=== PATIENT | male | born 1955 | race Caucasian/White ===

== ENCOUNTER 2018-03-16 15:05 | Emergency (ER) | payer BC ==
[~2018-03-16] VITALS: Ht 180.3 cm; Wt 108.9 kg
[~2018-03-16 15:05] MED LIST: ASPIRIN325 MG PO; EXCEDRIN MIGRA1 EAC3; FAMOTIDINE20 MG PO; GABAPENTIN300 MG PO; METOPROLOL TART25 MG PO; MIRAPEX0.125 MG PO; PLAVIX75 MG PO; SIMVASTATIN20 MG PO; ZESTRIL2.5 MG PO; ZOLPIDEM TARTRAT5 MG PO
[2018-03-16] MEDS ORDERED: ONDANSETRON HCL 4 MG ORAL DISINTEGRATING TAB PO ONE (19:00)
[2018-03-16] MEDS ORDERED: HYDROMORPHONE 2MG/ML 2 MG/ML ML IM ONE (19:00)
== END 2018-03-16 20:30 | disposition home or self-care (01) ==
LOC: ER 15:05
DX: M54.5 Low back pain (principal); S39.012A Strain of muscle, fascia and tendon of lower back, initial encounter; I10 Essential (primary) hypertension
CPT/HCPCS: 99284; J1170

== ENCOUNTER → 2019-01-22 | Outpatient (CLI) | payer BC ==
[~2019-01-22] MED LIST changes: +ALBUTEROL0.63 MG/3 INH; +ASPIRIN81 MG PO; +BENICAR HCT 401 EACH PO; +BENZONATATE100 MG PO; +CELEBREX100 MG PO; +CRESTOR20 MG PO; +FUROSEMIDE40 MG PO; +LEVAQUIN500 MG PO; +METHOCARBAMOL500 MG PO; +METOPROLOL SUCC50 MG PO; +NICOTINE PATCH1 EAC5 TD; +POTASSIUM CHLO10 ME1 PO; +PREDNISONE20 MG PO; +REQUIP0.5 MG PO; +ROBITUSSIN LON118 ML PO; +TRAZODONE HCL50 MG PO; +VITAMIN D3
--- NOTE | 2019-01-22 07:18 | Diagnostic Imaging Report ---
Exam: Right knee 2 views History: Knee pain after fall 2 months ago Comparison: None. Findings: No acute, displaced fracture or dislocation. Minimal tricompartmental joint space narrowing with faint calcifications in the medial and lateral menisci. No definite joint effusion. Soft tissues are unremarkable. Faint atherosclerotic calcifications of the distal superficial femoral artery. Impression: No acute osseous abnormality. Minimal tricompartmental degenerative arthrosis with meniscal calcifications. Consider CPPD arthropathy. Signed by: Dr. Edvin Long M.D. on 01/22/2019 7:15 AM
== END ==
LOC: RAD 06:28
PROVIDERS: ATTEND Internal Medicine
DX: M17.11 Unilateral primary osteoarthritis, right knee (principal)

== ENCOUNTER → 2019-04-04 | Outpatient (CLI) | payer BC ==
--- NOTE | 2019-04-04 11:57 | Diagnostic Imaging Report ---
TECHNIQUE: Magnetic resonance imaging of the RIGHT KNEE was performed WITHOUT injected contrast. HISTORY: UNSPC'D INTERNAL DERANGEMENT, fell, pain, swelling COMPARISON: Right knee radiographs January 22, 2019. FINDINGS: Motion artifact partially limits sensitivity and specificity of the exam. LIGAMENTS AND TENDONS: ACL: Intact PCL: Intact Collateral ligaments: Intact Iliotibial band: Unremarkable Popliteal tendon: Intact Extensor mechanism: Intact JOINT: Menisci: Medial: Complex tearing, centered at the posterior horn, extending from the posterior root attachment to the periphery of the adjacent body. Lateral: Intact Articular Cartilage: Medial Compartment: Erosion and fibrillation of the weightbearing cartilage, most notably high-grade at the central posterior weightbearing cartilage of the medial femoral condyle. Lateral Compartment: Superficial erosions of the weightbearing cartilage. Patellofemoral Compartment: Diffuse intermediate grade erosion of the patellar cartilage with high-grade to full-thickness fissuring. Joint Fluid: The amount of fluid within the joint is within physiologic limits. BONES: No focal or infiltrative bone marrow replacing abnormality. No acute fracture. Subtle focus of subchondral bone marrow edema at the medial patellar facet. SOFT TISSUES: A multilobulated subcentimeter para meniscal cyst adjacent to the posterior root attachment of the medial meniscus. Mild diffuse nonspecific soft tissue edema. IMPRESSION: Tricompartmental degenerative changes including degenerative tearing of the medial meniscus, acute on chronic tearing is possible given the provided history. Signed by: Dr. Khadar Hernandez D.O., M.M.M. on 04/04/2019 11:54 AM
== END ==
LOC: MRI 07:02
PROVIDERS: ATTEND Specialist
DX: M23.91 Unspecified internal derangement of right knee (principal)

== ENCOUNTER → 2019-04-15 | Day surgery (SDC) | payer BC ==
[2019-04-11 11:32] LABS: BASOPHILS % 0.2 % (0.0-1.0); EOSINOPHILS % 0.2 % (0.0-6.0); HEMATOCRIT 41.8 % (38.2-49.6); HEMOGLOBIN 14.3 g/dL (14.0-18.0); LYMPHOCYTES # (AUTO) 1.3 (1.0-3.2); LYMPHOCYTES % 7.8 % (18.0-39.1); MEAN CORPUSCULAR HEMOGLOBIN 33.7 pg (28-32); MEAN CORPUSCULAR HGB CONC 34.2 g/dL (31-35); MEAN CORPUSCULAR VOLUME 98.6 fL (81-99); MONOCYTES # (AUTO) 1.3 (0.2-0.8); MONOCYTES % 7.9 % (4.4-11.3); NEUTROPHILS # (AUTO) 14.2 (2.1-6.9); NEUTROPHILS % 83.1 % (38.7-80.0); PLATELET COUNT 270 x10e3/uL (140-360); RED BLOOD COUNT 4.24 x10e6/uL (4.3-5.7); RED CELL DISTRIBUTION WIDTH 14.1 % (11.7-14.4)
[~2019-04-15] MED LIST changes: +ACETAMINOPHEN 1000 MG/100 ML IV ONE; +APPLE CIDER VI300 MG; +BUTALB-ACETAMI1 EACH; +CEFAZOLIN SOD 1 GM/NS 50ML 50 ML IV ONE; +CORICIDIN HBP1 EACH; +DEXAMETHASONE SOD PHOS INJ 4 MG/ML VIAL ONE; +FENTANYL CITRATE/PF 100MCG/2 ML INJ ONE; +KETOROLAC TROMETHAMINE 30 MG/ML VIAL ONE; +LIDOCAINE HCL 2% LOCAL INJ 5 ML SDV VIAL INJ ONE; +MIDAZOLAM HCL 2 MG/2 ML VIAL ONE; +ONDANSETRON HCL INJ 2MG/ML 2ML 2 MG/ML VIAL ONE; +PROPOFOL IV EMULSION 10 MG/ML 20 ML VIAL ONE; +SEVOFLURANE INHAL SOLN 250 ML PEN BTL ONE; +TYLENOL ARTHRITIS
--- NOTE | 2019-04-15 07:05 | NUR ---
SPIRITUAL CARE - Pre-Surgery Assessment: Pt in bed. Pt's daughter at bedside. Pt reported supportive attention from family and friends. Intervention: I provided pastoral presence, hospitality, and sympathetic listening. I acquainted pt with availability of fitter type bar and segment while hospitalized. Outcome: Pt expressed appreciation for visit. No need for follow up indicated at this time. MARIKA [facility]ennal[facility] Spiritual Care Department O: [phone] Pager: [phone] ([phone] calling from)
[2019-04-15 07:11] LABS: BASOPHILS # (AUTO) 0.1 (0.0-0.1); BASOPHILS % 0.4 % (0.0-1.0); EOSINOPHILS # (AUTO) 0.2 (0.0-0.4); EOSINOPHILS % 1.2 % (0.0-6.0); HEMATOCRIT 38.6 % (38.2-49.6); HEMOGLOBIN 13.2 g/dL (14.0-18.0); LYMPHOCYTES # (AUTO) 2.2 (1.0-3.2); LYMPHOCYTES % 17.1 % (18.0-39.1); MEAN CORPUSCULAR HEMOGLOBIN 33.8 pg (28-32); MEAN CORPUSCULAR HGB CONC 34.2 g/dL (31-35); MEAN CORPUSCULAR VOLUME 98.7 fL (81-99); MONOCYTES # (AUTO) 1.2 (0.2-0.8); MONOCYTES % 9.6 % (4.4-11.3); NEUTROPHILS # (AUTO) 9.1 (2.1-6.9); NEUTROPHILS % 70.2 % (38.7-80.0); PLATELET COUNT 260 x10e3/uL (140-360); RED BLOOD COUNT 3.91 x10e6/uL (4.3-5.7); RED CELL DISTRIBUTION WIDTH 14.7 % (11.7-14.4)
[2019-04-15 10:20] VITALS: BP 122/63
--- NOTE | 2019-04-15 14:37 | Operative Report ---
DATE OF PROCEDURE: 04/15/2019 SURGEON: Edvin Brooks MD PRACTICING DERMATOLOGIST: Dae Richardson, certified PA. PREOPERATIVE DIAGNOSIS: Right knee medial meniscal tear. POSTOPERATIVE DIAGNOSES: 1. Right knee medial meniscal tear. 2. Grade 3 chondromalacia of the medial femoral condyle. PROCEDURES: Right knee arthroscopy, partial medial meniscectomy, and chondroplasty of the medial femoral condyle. INDICATIONS: The patient is a 63-year-old gentleman, who has clinic signs and symptoms consistent with a complex tear of the medial meniscus in his right knee. He has failed conservative management and would like to proceed with more aggressive intervention. The risks and benefits of arthroscopy have been discussed. The likelihood of arthritic changes in the knee has been explained. The likelihood of some persistent aching arthritic pain after the surgery has been explained. He states he understands and wishes to proceed. PROCEDURE IN DETAIL: The patient was brought to the operating room and placed under general anesthetic. His right lower extremity was prepped and draped in a sterile manner. A preoperative time-out was performed. A tourniquet placed in the upper thigh had been inflated to 300 mmHg. Standard arthroscopy portals were established. The knee was insufflated with sterile saline and systematically inspected. The suprapatellar pouch demonstrated some synovitis. There was a large medial parapatellar plica. The medial compartment was inspected. A large portion of the weightbearing surfaces of the medial femoral condyle demonstrated grade 3 chondromalacia. There were unstable peripheral margins of the area of wear. There was a complex tear of the posterior horn of the medial meniscus. A combination of biting forceps and a mechanical shaver were used to debride the meniscus back to a stable margin. A gentle chondroplasty was performed to the unstable fragments of cartilage along the medial femoral condyle. The medial plica was removed. The cruciate ligaments and lateral compartment were unremarkable. There was mild chondrocalcinosis in the lateral meniscus, but there was no evidence of an unstable tear. The knee was thoroughly irrigated. The arthroscopic instruments were removed. The portal incisions were closed with nylon stitches. A sterile bandage was applied. There was no blood loss and all needle and sponge counts were correct. Edvin Brooks MD DR/OUSMANE /[id number]
== END | disposition home or self-care (01) ==
LOC: OR 05:40
PROVIDERS: ATTEND Specialist
DX: S83.231A Complex tear of medial meniscus, current injury, right knee, initial encounter (principal); M94.261 Chondromalacia, right knee; M67.51 Plica syndrome, right knee; M11.261 Other chondrocalcinosis, right knee; I25.2 Old myocardial infarction; E78.5 Hyperlipidemia, unspecified; I10 Essential (primary) hypertension; K44.9 Diaphragmatic hernia without obstruction or gangrene; K21.9 Gastro-esophageal reflux disease without esophagitis; F17.210 Nicotine dependence, cigarettes, uncomplicated; X58.XXXA Exposure to other specified factors, initial encounter; Y93.39 Activity, other involving climbing, rappelling and jumping off; Y92.814 Boat as the place of occurrence of the external cause; Z01.812 Encounter for preprocedural laboratory examination; Z79.02 Long term (current) use of antithrombotics/antiplatelets; Z79.82 Long term (current) use of aspirin; Z68.34 Body mass index [BMI] 34.0-34.9, adult
CPT/HCPCS: 29881; 36415 ×2; 85025 ×2; J0131; J0690; J1100; J1885; J2001; J2250; J2405; J2704; J3010

== ENCOUNTER 2019-04-19 22:45 | Emergency (ER) | payer BC ==
[~2019-04-19] VITALS: Ht 180.3 cm; Wt 110.7 kg
[~2019-04-19 22:45] MED LIST changes: -ACETAMINOPHEN 1000 MG/100 ML IV ONE; -CEFAZOLIN SOD 1 GM/NS 50ML 50 ML IV ONE; -DEXAMETHASONE SOD PHOS INJ 4 MG/ML VIAL ONE; -FENTANYL CITRATE/PF 100MCG/2 ML INJ ONE; -KETOROLAC TROMETHAMINE 30 MG/ML VIAL ONE; -LIDOCAINE HCL 2% LOCAL INJ 5 ML SDV VIAL INJ ONE; -MIDAZOLAM HCL 2 MG/2 ML VIAL ONE; -ONDANSETRON HCL INJ 2MG/ML 2ML 2 MG/ML VIAL ONE; -PROPOFOL IV EMULSION 10 MG/ML 20 ML VIAL ONE; -SEVOFLURANE INHAL SOLN 250 ML PEN BTL ONE
--- NOTE | 2019-04-19 23:40 | NUR ---
pt manually disimpacted per md orders. large amount of hard stool manually removed. pt tolerated c minimal discomfort. pt up to bathroom p disimpaction and able to have large soft bm at this time. md informed.
== END 2019-04-19 23:57 | disposition home or self-care (01) ==
LOC: ER 22:45
DX: K59.00 Constipation, unspecified (principal); I10 Essential (primary) hypertension; E78.5 Hyperlipidemia, unspecified; K21.9 Gastro-esophageal reflux disease without esophagitis; Z95.5 Presence of coronary angioplasty implant and graft
CPT/HCPCS: 99283

== ENCOUNTER → 2020-12-09 | Outpatient (CLI) | payer MEDICARE, OTHER ==
[~2020-12-09] MED LIST changes: +IOPAMIDOL 370 MG/ML 200 ML INFUS..BTL INJ ONE; +SODIUM CHLORIDE 0.9% 50ML 50 ML ONE
[2020-12-09 14:22] LABS: BLOOD UREA NITROGEN 17 mg/dL (7-26); BUN/CREATININE RATIO 15 (6-25); EST GLOMERULAR FILTRATION RATE > 60 ML/MIN (60-)
== END ==
LOC: CT 13:11
PROVIDERS: ATTEND Internal Medicine Interventional Cardiology
DX: R07.9 Chest pain, unspecified (principal); R51.9 Headache, unspecified
CPT/HCPCS: 36415; 71260; 82565; 84520; Q9967

== ENCOUNTER → 2020-12-09 | Outpatient (CLI) | payer OTHER ==
[~2020-12-09] MED LIST changes: -IOPAMIDOL 370 MG/ML 200 ML INFUS..BTL INJ ONE; -SODIUM CHLORIDE 0.9% 50ML 50 ML ONE
== END ==
LOC: CT 13:31
PROVIDERS: ATTEND Internal Medicine
DX: R51.9 Headache, unspecified (principal)
CPT/HCPCS: 70450

== ENCOUNTER → 2021-03-11 | Outpatient (CLI) | payer MEDICARE ==
[~2021-03-11] MED LIST changes: +IOPAMIDOL 200 MG/ML 20 ML VIAL IT ONE; +IOPAMIDOL 300 MG/ML 15ML VIAL IT ONE; +LIDOCAINE HCL 1% LOCAL INJ 20 ML VIAL ONE
[2021-03-11 10:16] LABS: HEMOGLOBIN 16.5 g/dL (14.0-18.0)
[2021-03-11 10:40] LABS: INR 0.96
[2021-03-11 10:44] LABS: PARTIAL THROMBOPLASTIN TIME 28.6 seconds (23.8-35.5)
== END ==
LOC: DX 09:53
PROVIDERS: ATTEND Internal Medicine
DX: M54.12 Radiculopathy, cervical region (principal); M50.80 Other cervical disc disorders, unspecified cervical region
CPT/HCPCS: 36415; 62302; 72126; 85014; 85049; 85610; 85730; J2001; Q9967 ×2

== ENCOUNTER → 2021-06-15 | Outpatient (CLI) | payer MEDICARE ==
[~2021-06-15] MED LIST changes: -IOPAMIDOL 200 MG/ML 20 ML VIAL IT ONE; -IOPAMIDOL 300 MG/ML 15ML VIAL IT ONE; -LIDOCAINE HCL 1% LOCAL INJ 20 ML VIAL ONE
== END ==
LOC: MRI 08:33
PROVIDERS: ATTEND Neurological Surgery
DX: M54.12 Radiculopathy, cervical region (principal); M54.6 Pain in thoracic spine
CPT/HCPCS: 72070; 72141

== ENCOUNTER 2021-07-01 10:55 | Outpatient (RCR) | payer MEDICARE | END 2021-07-16 | LOC: PT 10:55 | PROVIDERS: ATTEND Neurological Surgery | DX: M54.12 Radiculopathy, cervical region (principal) ==

== ENCOUNTER 2024-05-02 05:52 | Emergency (ER) | payer OTHER ==
[~2024-05-02] VITALS: Ht 180.3 cm; Wt 101.2 kg
[~2024-05-02 05:52] MED LIST changes: +OLMESARTAN-HCT1 EAC1
[2024-05-02 06:05] VITALS: PULSE 95; RESP 17; TEMP 98.8; O2SAT 98
== END 2024-05-02 06:57 | disposition home or self-care (01) ==
LOC: ER 06:07 → MERGE 06:07 → ER 06:57
DX: R33.9 Retention of urine, unspecified (principal); I10 Essential (primary) hypertension; E78.5 Hyperlipidemia, unspecified; I25.10 Atherosclerotic heart disease of native coronary artery without angina pectoris; M54.9 Dorsalgia, unspecified; G89.29 Other chronic pain; F17.210 Nicotine dependence, cigarettes, uncomplicated
CPT/HCPCS: 51700; 99282

== ENCOUNTER 2024-10-26 08:53 | Emergency (ER) | payer SELFPAY ==
[~2024-10-26] VITALS: Ht 182.9 cm; Wt 115.7 kg
[~2024-10-26 08:53] MED LIST changes: -ALBUTEROL SULF 0.083% NEB SOLN 3 ML NEB ONE; -DOXYCYCLINE HY100 MG PO
[2024-10-26 09:56] LABS: BASOPHILS % 0.3 % (0.0-1.0); EOSINOPHILS # (AUTO) 0.2 (0.0-0.4); EOSINOPHILS % 3.3 % (0.0-6.0); HEMATOCRIT 42.4 % (38.2-49.6); HEMOGLOBIN 13.9 g/dL (14.0-18.0); LYMPHOCYTES % 15.6 % (18.0-39.1); MEAN CORPUSCULAR HEMOGLOBIN 28.5 pg (28-32); MEAN CORPUSCULAR HGB CONC 32.8 g/dL (31-35); MEAN CORPUSCULAR VOLUME 87.1 fL (81-99); MONOCYTES # (AUTO) 0.6 (0.2-0.8); MONOCYTES % 9.4 % (4.4-11.3); NEUTROPHILS # (AUTO) 4.7 (2.1-6.9); NEUTROPHILS % 70.7 % (38.7-80.0); PLATELET COUNT 203 x10e3/uL (140-360); RED BLOOD COUNT 4.87 x10e6/uL (4.3-5.7); RED CELL DISTRIBUTION WIDTH 17.4 % (11.7-14.4); WHITE BLOOD COUNT 6.68 x10e3/uL (4.8-10.8)
[2024-10-26] MEDS: SODIUM CHLORIDE 0.9% 1000ML 2,330 ML IV SCH (09:58)
[2024-10-26] MEDS: DEXAMETHASONE SOD PHOS 10 MG/1 ML VIAL IV ONE (09:59)
[2024-10-26] MEDS: KETOROLAC TROMETHAMINE 30 MG/ML VIAL IV STA (10:09)
[2024-10-26 10:10] VITALS: PULSE 93; RESP 18; O2SAT 93
[2024-10-26 10:11] VITALS: PULSE 93; RESP 18
[2024-10-26 10:11] LABS: ALBUMIN 3.6 g/dL (3.5-5.0); ALBUMIN/GLOBULIN RATIO 1.1 (0.8-2.0); BILIRUBIN,TOTAL 0.8 mg/dL (0.2-1.2); CALCIUM 9.1 mg/dL (8.4-10.2); CREATININE, SERUM 1.25 mg/dL (0.72-1.25); INR 1.05; PROTHROMBIN TIME 14.3 seconds (11.9-14.5)
[2024-10-26] MEDS: ALBUTEROL/IPRATROPIUM 3 ML NEB NEB ONE (10:11)
[2024-10-26 10:16] LABS: CORONAVIRUS COVID-19 AG NEGATIVE (NEGATIVE); INFLUENZA A AG NEGATIVE (NEGATIVE); INFLUENZA B AG NEGATIVE (NEGATIVE)
[2024-10-26 11:53] LABS: CLARITY,URINE CLEAR (CLEAR); COLOR,URINE YELLOW (YELLOW)
[2024-10-26 11:54] LABS: BILIRUBIN,URINE NEGATIVE (NEGATIVE); GLUCOSE, URINE NEGATIVE (NEGATIVE); KETONES,URINE NEGATIVE (NEGATIVE); LEUKOCYTE ESTERASE ,URINE NEGATIVE (NEGATIVE); NITRITE,URINE NEGATIVE (NEGATIVE); PH,URINE 6.5 (5 - 7); PROTEIN,URINE DIPSTICK NEGATIVE (NEGATIVE); URINE UROBILINOGEN 0.2 mg/dL (0.2 - 1)
[2024-10-26 12:02] LABS: BACTERIA,URINE RARE /HPF; EPITHELIAL CELLS,URINE FEW /LPF; WBC,URINE (MAN) 0-5 /HPF (0-5)
[2024-10-26 12:03] LABS: MUCUS,URINE FEW
[2024-10-26] MEDS ORDERED: DOXYCYCLINE HY100 MG PO (12:08)
[2024-10-26 12:45] VITALS: PULSE 89; RESP 16; TEMP 98.6; O2SAT 98
== END 2024-10-26 12:47 | disposition home or self-care (01) ==
LOC: ER 09:16
DX: J44.1 Chronic obstructive pulmonary disease with (acute) exacerbation (principal); R05.9 Cough, unspecified; Z11.52 Encounter for screening for COVID-19
CPT/HCPCS: 36415; 71046; 80053; 81001; 83605; 85025; 85610; 85730; 87040; 87086; 87428; 93005; 94640; 94799; 99284; J1100; J1885

== ENCOUNTER → 2024-10-26 | Emergency (ER) | payer MEDICARE ==
[~2024-10-26] MED LIST changes: +ALBUTEROL SULF 0.083% NEB SOLN 3 ML NEB ONE; +DOXYCYCLINE HY100 MG PO
== END | disposition left against medical advice (07) ==
LOC: ER 09:15
DX: R06.02 Shortness of breath (principal)
CPT/HCPCS: 93005